=== PATIENT | male | born 1970 | race African-American/Black ===

== ENCOUNTER 2018-08-16 21:43 | Inpatient (IN) ==
[2018-08-17] MEDS ORDERED: ONDANSETRON 4 MG/2 ML VIAL IV STA (04:28)
[2018-08-17] MEDS ORDERED: MORPHINE 4 MG/1 ML VIAL IV STA (04:28)
[2018-08-17] MEDS ORDERED: MAGNESIUM HYDROXIDE SUSP 30 ML UDCUP PO PRN ×2 (04:29→11:59)
[2018-08-17] MEDS ORDERED: ONDANSETRON 4 MG/2 ML VIAL IV PRN ×2 (04:31→13:41)
[2018-08-17] MEDS ORDERED: MORPHINE 4 MG/1 ML VIAL IV PRN ×2 (04:31→12:02)
[2018-08-17 05:05] LABS: Basophils # 0.1 10*3/uL (0.0-0.2); Basophils % 0.4 % (0.0-0.8); Eosinophils % 0.1 % (0.00-10.9); Hematocrit 43.2 VOL% (42.0-52.0); Immature Granulocytes % 0.4 %; Immature Granulocytes Absolute 0.05 #; Lymphocytes # 1.8 10*3/uL (1.4-4.0); Lymphocytes % 12.3 % (21.2-54.2); Mean Corpuscular HGB Conc 32.4 GM/DL (32-36); Mean Corpuscular Hemoglobin 31 PG (27-34); Mean Corpuscular Volume 96.9 FL (87-102); Mean Platelet Volume 10.2 FL (9.6-12.0); Monocytes % 6.9 % (1.7-12.7); Neutrophils # 11.4 10*3/uL (1.4-7.4); Neutrophils % 79.9 % (38.7-73.9); Platelet Count 280 T/CUMM (130-400); Red Blood Count 4.46 MC/CUMM (3.8-5.5); Red Cell Distribution Width 12.1 % (9.3-17.3); White Blood Count 14.2 T/CUMM (4-12)
[2018-08-17 05:15] LABS: Albumin 3.9 G/DL (3.4-5.0); Bilirubin,Total 0.4 MG/DL (0.2-1.0); Osmolality,Calculated 268.1 MOS/KG (273-304); Potassium 4.6 MMOL/L (3.5-5.1); Total Protein 8.6 G/DL (6.4-8.3)
[2018-08-17] MEDS: LACTATED RINGERS 1,000 ML IV SCH ×2 (06:11→14:55)
[2018-08-17] MEDS ORDERED: ceFAZolin 2,000 MG in PREMIX 1 EACH IV ONE (10:00)
[2018-08-17] MEDS ORDERED: PROMETHAZINE 25 MG/1 ML VIAL IM PRN (11:59)
[2018-08-17] MEDS ORDERED: NALOXONE 0.4 MG/ML VIAL IV PRN (11:59)
[2018-08-17] MEDS ORDERED: MORPHINE PCA 30 MG/30 ML SYRINGE IV SCH (12:00)
[2018-08-17] MEDS ORDERED: PROPOFOL 200 MG/20 ML VIAL IV ONE (13:34)
[2018-08-17] MEDS ORDERED: SEVOFLURANE 1 UNIT/15 MINUTE INH ONE (13:34)
[2018-08-17] MEDS ORDERED: MIDAZOLAM 2 MG/2 ML VIAL ONE (13:34)
[2018-08-17] MEDS ORDERED: fentaNYL 100 MCG/2 ML VIAL ONE (13:34)
[2018-08-17] MEDS ORDERED: PHENYLEPHRINE 1 MG/10 ML SYRINGE IV ONE (13:35)
[2018-08-17] MEDS ORDERED: KETOROLAC 30 MG/1 ML VIAL ONE (13:35)
[2018-08-17] MEDS ORDERED: DEXAMETHASONE 10 MG/1 ML VIAL ONE (13:35)
[2018-08-17] MEDS ORDERED: ACETAMINOPHEN 1,000 MG/100 ML VIAL IV ONE (13:35)
[2018-08-17] MEDS ORDERED: ONDANSETRON 4 MG/2 ML VIAL ONE (13:35)
[2018-08-17] MEDS ORDERED: LACTATED RINGERS 1,000 ML IV ONE (13:35)
[2018-08-17] MEDS: HYDROmorphone 2 MG/1 ML VIAL IV PRN ×4 (13:46→14:07)
[2018-08-17] MEDS ORDERED: MORPHINE PCA 30 MG/30 ML SYRINGE IV ONE (14:41)
[2018-08-17] MEDS ORDERED: hydrALAZINE 20 MG/1 ML VIAL IV PRN ×2 (16:00→18:30)
[2018-08-17] MEDS ORDERED: amLODIPine 5 MG TABLET PO ONE (16:02)
[2018-08-17] MEDS ORDERED: cloNIDine 0.1 MG TABLET PO ONE (16:03)
[2018-08-17] MEDS: ceFAZolin 2,000 MG in PREMIX 1 EACH IV SCH (17:19)
[2018-08-17] MEDS: NICOTINE 21 MG/24 HR PATCH TRANSDERM SCH (17:19)
[2018-08-17] MEDS: MORPHINE 4 MG/1 ML VIAL IV PRN (20:21)
[2018-08-17] MEDS ORDERED: cloNIDine 0.1 MG TABLET PO SCH ×2 (21:00)
[2018-08-18] MEDS: ceFAZolin 2,000 MG in PREMIX 1 EACH IV SCH ×2 (01:19→10:24)
[2018-08-18] MEDS: MORPHINE 4 MG/1 ML VIAL IV PRN (01:24)
[2018-08-18 03:10] LABS: CKMB % 0.3 %; Troponin I < 0.015 NG/ML (0.00-0.045)
[2018-08-18] MEDS: LACTATED RINGERS 1,000 ML IV SCH (05:05)
[2018-08-18 05:53] LABS: Risk Ratio 2.29; VLDL CHOLESTEROL 8.6 MG/DL
[2018-08-18 06:07] LABS: CKMB % 0.3 %; Troponin I < 0.015 NG/ML (0.00-0.045)
[2018-08-18 06:45] LABS: Creatinine Ur Quant Random 34 MG/DL; Microalbum Ur Quant Random < 5.0 MG/L (0-20)
[2018-08-18] MEDS ORDERED: amLODIPine 5 MG TABLET PO SCH (09:00)
[2018-08-18] MEDS: cloNIDine 0.1 MG TABLET PO SCH ×3 (09:03→20:48)
[2018-08-18] MEDS: NICOTINE 21 MG/24 HR PATCH TRANSDERM SCH (09:04)
[2018-08-18] MEDS: amLODIPine 10 MG TABLET PO SCH (09:10)
[2018-08-19] MEDS: amLODIPine 10 MG TABLET PO SCH (09:11)
[2018-08-19] MEDS: cloNIDine 0.1 MG TABLET PO SCH (09:11)
[2018-08-19] MEDS: NICOTINE 21 MG/24 HR PATCH TRANSDERM SCH (09:14)
[2018-08-19 11:26] VITALS: BP 130/72
== END 2018-08-19 12:14 | disposition home or self-care (01) | DRG 494 ==
LOC: N.EDINP 21:43 → N.ED 21:43 → N.3EOUT 08-17 04:35 → N.LD 08-17 04:36 → N.3EOUT 08-17 04:36 → N.3E 08-17 04:36 → EDSTATUS 08-17 05:10 → N.3EOUT 08-17 05:10 → UNDODEPREF 10-22 10:02
PROVIDERS: ADMIT Orthopaedic Surgery; ATTEND Orthopaedic Surgery